=== PATIENT | female | born 1980 ===

== ENCOUNTER → 2021-08-23 | Day surgery (SDC) | payer OTHER ==
[~2021-08-23] VITALS: Ht 165.1 cm; Wt 72.1 kg
[~2021-08-23] MED LIST: KETOROLAC TROME10 MG PO; VIENVA-28 TABL1 EACH PO
[2021-08-23 07:25] LABS: HCG (URINE) SCREEN NEGATIVE (NEGATIVE)
--- NOTE | 2021-08-23 07:47 | NUR ---
INTERPRETOR LINE CALLED [facility] [phone]
[2021-08-23 07:50] LABS: HCT 36.7 % (37.0-47.0); HGB 12.5 g/dl (12.5-16.0); MCH 31.2 pg (25.0-31.0); MCHC 34.1 g/dL (32.0-36.0); MCV 91.5 fL (78.0-100.0); RBC 4.01 M/uL (4.20-5.40); RDW 12.3 % (11.5-14.0); WBC 6.3 K/uL (4.0-10.5)
[2021-08-23 08:15] LABS: ALBUMIN 3.5 g/dL (3.4-5.0); BILIRUBIN - TOTAL 0.3 mg/dL (0.2-1.0); BUN/CREAT RATIO (CALC) 17.4 RATIO; CREATININE 0.69 mg/dL (0.51-0.95); GLOBULIN (CALCULATION) 3.7 g/dL; POTASSIUM 3.9 mmol/L (3.5-5.1); TOTAL PROTEIN 7.2 g/dL (6.4-8.2)
== END | disposition home or self-care (01) ==
LOC: FAS 07:04
PROVIDERS: Anesthesiology; Specialist
DX: N93.9 Abnormal uterine and vaginal bleeding, unspecified (principal); N92.6 Irregular menstruation, unspecified; D64.9 Anemia, unspecified
CPT/HCPCS: 36415; 80053; 84703; 86850; 86900; 86901; J0690; J1885; J2250; J2405; J2704; J3010; J7120

== ENCOUNTER 2022-03-11 13:05 | Emergency (ER) | payer OTHER ==
[2022-03-11 14:35] LABS: BASOPHIL 0.4 % (0-2); EOSINOPHIL 1.3 % (0-5); HCT 41.3 % (37.0-47.0); LYMPHOCYTE 24.7 % (15-48); MCHC 33.9 g/dL (32.0-36.0); MCV 91.6 fL (78.0-100.0); MONOCYTE 6.9 % (0-12); MPV 11.5 fL (6.0-9.5); NEUTROPHIL 66.3 % (41-80); NRBC 0; PLT 196 K/uL (150-400); RBC 4.51 M/uL (4.20-5.40); RDW 12.7 % (11.5-14.0); WBC 7.9 K/uL (4.0-10.5)
[2022-03-11 14:37] LABS: BILIRUBIN NEGATIVE (NEGATIVE); BLOOD TRACE-INTACT Ery/uL (NEGATIVE); CLARITY CLEAR (CLEAR); COLOR YELLOW (YELLOW); GLUCOSE (U) NORMAL (NORMAL); LEUKOCYTES TRACE Leu/uL (NEGATIVE); NITRITE NEGATIVE (NEGATIVE); PROTEIN NEGATIVE (NEGATIVE); UROBILINOGEN 0.2 mg/dL (0.2-1.0); pH 7.5 (5.0-9.0)
[2022-03-11 14:48] LABS: BACTERIA TRACE; URINARY RBC RARE
[2022-03-11 15:04] LABS: ALBUMIN 3.8 g/dL (3.4-5.0); BILIRUBIN - TOTAL 0.3 mg/dL (0.2-1.0); BUN/CREAT RATIO (CALC) 15.4 RATIO; CREATININE 0.78 mg/dL (0.51-0.95); POTASSIUM 3.8 mmol/L (3.5-5.1); TOTAL PROTEIN 7.8 g/dL (6.4-8.2)
[2022-03-11] MEDS ORDERED: ONDANSETRON ODT4 MG PO (19:04)
[2022-03-11] MEDS ORDERED: DICYCLOMINE HCL20 MG PO (19:04)
== END 2022-03-11 19:02 | disposition home or self-care (01) ==
LOC: FER 13:05
PROVIDERS: Physician Assistant
DX: R10.9 Unspecified abdominal pain (principal); R19.7 Diarrhea, unspecified; R11.2 Nausea with vomiting, unspecified
CPT/HCPCS: 36415; 80053; 81001; 83690; 85025; Q9967

== ENCOUNTER 2022-03-26 15:03 | Emergency (ER) | payer OTHER ==
[~2022-03-26 15:03] MED LIST changes: +DICYCLOMINE HCL20 MG PO; +ONDANSETRON ODT4 MG PO
[2022-03-26] MEDS ORDERED: ANUCORT-HC25 MG PR (19:54)
== END 2022-03-26 20:04 | disposition home or self-care (01) ==
LOC: FER 15:03
DX: K64.8 Other hemorrhoids (principal); Z28.310 Unvaccinated for COVID-19
CPT/HCPCS: 99282